=== PATIENT | female | born 1945 | race Caucasian/White ===

== ENCOUNTER 2021-10-01 09:48 | Inpatient (IN) | payer OTHER ==
[2021-09-30 10:44] LABS: INR 1.02 (0.9-1.15); Partial Thromboplastin Time 26.2 sec (23.6-33.0)
[~2021-10-01] VITALS: Ht 165.1 cm; Wt 73.1 kg
[2021-10-01] MEDS ORDERED: CLINDAMYCIN 900MG IV 50 ML IV ONE (11:14)
[2021-10-01] MEDS ORDERED: EPINEPHrine HCL 1 MG/1 ML AMP ONE (12:13)
[2021-10-01] MEDS ORDERED: TRANEXAMIC ACID 20 ML ONE (12:13)
[2021-10-01] MEDS ORDERED: VANCOMYCIN HCL 1000 MG VL ONE (12:14)
[2021-10-01] MEDS ORDERED: TETRACAINE 1% INJ 2 ML VIAL IJ ONE (12:27)
[2021-10-01] MEDS ORDERED: MORPHINE SULF PF 2 MG/2 ML SYRG ONE ×2 (12:32→15:01)
[2021-10-01] MEDS ORDERED: BUPIVACAINE 0.25% INJ 50ML VIAL ONE (15:02)
[2021-10-01] MEDS ORDERED: KETOROLAC TROMETH 30 MG/ML 1ML VIAL ONE (15:03)
[2021-10-01] MEDS ORDERED: ACETAMINOPHEN 325 MG TAB PO PRN (15:45)
[2021-10-01] MEDS ORDERED: HYDROmorphone HCL 2 MG/ML VL IV PRN (15:45)
[2021-10-01] MEDS ORDERED: oxyCODONE HCL 5MG TAB PO PRN ×2 (15:45)
[2021-10-01] MEDS ORDERED: fentaNYL CITRATE 100 MCG/2 ML VL IV ONE (15:53)
[2021-10-01] MEDS ORDERED: MIDAZOLAM HCL 2MG/2ML 2ml VIAL (1mg/ml) IV ONE (15:53)
[2021-10-01] MEDS ORDERED: ONDANSETRON HCL 4 MG/2 ML VIAL IV ONE (15:53)
[2021-10-01] MEDS ORDERED: PROPOFOL 10 MG/ML 20 ML IV ONE (15:53)
[2021-10-01] MEDS ORDERED: ONDANSETRON HCL 4 MG/2 ML VIAL IV PRN (16:00)
[2021-10-01] MEDS: HYDROmorphone HCL 2 MG/ML VL ONE ×2 (16:09→16:30)
[2021-10-01] MEDS: D5W/LACTATED RINGERS 1,000 ML IV SCH (17:52)
[2021-10-01] MEDS: ACETAMINOPHEN 325 MG TAB PO SCH ×2 (18:12→23:14)
[2021-10-01] MEDS: KETOROLAC TROMETH 30 MG/ML 1ML VIAL IV SCH ×2 (18:12→23:13)
[2021-10-01 18:13] VITALS: BP 145/62
[2021-10-01] MEDS: CLINDAMYCIN 600MG IV 50 ML IV SCH (19:36)
[2021-10-01] MEDS: PREGABALIN 25 MG CAP PO SCH (21:17)
[2021-10-01] MEDS: ceFAZolin 2 GM in D5W 5% 100 ML IV SCH (21:43)
[2021-10-01 22:00] VITALS: BP 129/63
[2021-10-01] MEDS ORDERED: CLINDAMYCIN 600MG IV 50 ML IV SCH (22:00)
[2021-10-02] MEDS: D5W/LACTATED RINGERS 1,000 ML IV SCH ×2 (00:51→12:21)
[2021-10-02] MEDS: CLINDAMYCIN 600MG IV 50 ML IV SCH (03:43)
[2021-10-02 05:00] VITALS: BP 101/54
[2021-10-02] MEDS: ceFAZolin 2 GM in D5W 5% 100 ML IV SCH (05:17)
[2021-10-02] MEDS: KETOROLAC TROMETH 30 MG/ML 1ML VIAL IV SCH ×2 (05:18→12:21)
[2021-10-02] MEDS: ACETAMINOPHEN 325 MG TAB PO SCH ×3 (05:18→17:55)
[2021-10-02 09:00] VITALS: BP 104/58
[2021-10-02] MEDS: PREGABALIN 25 MG CAP PO SCH (09:28)
[2021-10-02] MEDS ORDERED: ASPirin 81 mg TAB PO SCH (10:00)
[2021-10-02 12:39] VITALS: BP 104/58
[2021-10-02 12:55] VITALS: BP 115/61
[2021-10-02 13:21] LABS: Basophils # (auto) 0 10 ^3/uL (0-0.2); Basophils % (auto) 0.2 % (0.0-2.0); Eosinophils # (auto) 0 10 ^3/uL (0-0.8); Eosinophils % (auto) 0.4 % (0.0-7.0); Hematocrit 31.9 % (36.0-46.0); Hemoglobin 10.5 g/dL (12.2-16.2); Mean Corpuscular Hemoglobin 28.8 pg (28.0-32.0); Mean Corpuscular Volume 87.4 fL (80.0-100.0); Monocytes # (auto) 0.8 10 ^3/uL (0-1.3); Monocytes % (auto) 10.1 % (0.0-12.0); Neutrophils # (auto) 5.6 10 ^3/uL (1.6-8.6); Neutrophils % (auto) 75.3 % (37.0-80.0); Nucleated Red Blood Cells % 0.1 %; Red Blood Cells 3.65 10^6/uL (4.0-5.20); Red Cell Distribution Width 13.7 % (11.8-14.3); White Blood Cell 7.4 10^3/uL (4.4-10.8)
[2021-10-02 14:46] LABS: Potassium 3.9 mmol/L (3.5-5.1)
[2021-10-02 14:50] LABS: BUN/Creatinine Ratio 15.9
[2021-10-02 16:45] VITALS: BP 115/61
== END 2021-10-02 15:54 | disposition home health service (06) | DRG 470 ==
LOC: SUR 09:48 → TELE-CENTR 09:49
PROVIDERS: ADMIT Orthopaedic Surgery; ATTEND Orthopaedic Surgery
PROC: 0SRD069 Replacement of Left Knee Joint with Oxidized Zirconium on Polyethylene Synthetic Substitute, Cemented, Open Approach (ICD-10-PCS; principal; 2021-10-01 12:26)
DX: M17.12 Unilateral primary osteoarthritis, left knee (principal); Z80.52 Family history of malignant neoplasm of bladder; Z82.3 Family history of stroke; Z20.822 Contact with and (suspected) exposure to COVID-19; Z88.0 Allergy status to penicillin
CPT/HCPCS: 36415; 73562; 80048; 85025; 85610; 85730; 86850; 86900; 86901; G0378; J0171; J0690; J1885; J2250; J2405; J2704; J3490; J7060

== ENCOUNTER 2024-05-03 22:21 | Inpatient (IN) | payer OTHER ==
[~2024-05-03] VITALS: Ht 170.2 cm; Wt 84.6 kg
[2024-05-04] VITALS (9 sets, daily range): BP systolic 114–135; BP diastolic 42–70; PULSE 62–76; RESP 16–20; TEMP 98.2–99.2; O2SAT 93–98
[2024-05-04] MEDS ORDERED: DOCUSATE SOD 100 MG CAP PO PRN (04:45)
[2024-05-04] MEDS ORDERED: MORPHINE SULFATE INJ 2 MG/ml SYRG IV PRN (04:45)
[2024-05-04] MEDS ORDERED: ONDANSETRON HCL 4 MG/2 ML VIAL IV PRN (04:45)
[2024-05-04] MEDS: D5W/SOD CHL 0.45% 1,000 ML IV SCH (04:45)
[2024-05-04] MEDS ORDERED: NITROGLYCERIN 0.4 MG SL TAB SL PRN (04:45)
[2024-05-04] MEDS: MORPHINE SULFATE INJ 2 MG/ml SYRG IV PRN (05:57)
[2024-05-04] MEDS ORDERED: GABA-1308 PO (07:06)
[2024-05-04] MEDS ORDERED: BACL10TA PO (07:08)
[2024-05-04] MEDS ORDERED: IBUP-1454 PO (07:08)
[2024-05-04 08:33] LABS: Basophils # (auto) 0 10 ^3/uL (0-0.2); Basophils % (auto) 0.3 % (0.0-2.0); Eosinophils # (auto) 0.1 10 ^3/uL (0-0.8); Eosinophils % (auto) 1.4 % (0.0-7.0); Hematocrit 33.4 % (36.0-46.0); Lymphocytes # (auto) 1.4 10 ^3/uL (0.4-5.4); Mean Corpuscular Hgb Conc. 33.1 g/dL (32.0-36.0); Mean Corpuscular Volume 87.6 fL (80.0-100.0); Monocytes % (auto) 10.4 % (0.0-12.0); Neutrophils # (auto) 6.7 10 ^3/uL (1.6-8.6); Neutrophils % (auto) 72.9 % (37.0-80.0); Red Blood Cells 3.81 10^6/uL (4.0-5.20); Red Cell Distribution Width 15.7 % (11.8-14.3); White Blood Cell 9.1 10^3/uL (4.4-10.8)
[2024-05-04 08:48] LABS: Carbon Dioxide 27 mmol/L (20-30)
[2024-05-04 08:49] LABS: Calcium 9.1 mg/dL (8.5-10.1)
[2024-05-04 08:50] LABS: Chloride 107 mmol/L (98-107); Potassium 3.8 mmol/L (3.5-5.1); Sodium 137 mmol/L (136-145)
[2024-05-04 08:54] LABS: BUN/Creatinine Ratio 15.5 (10.0-20.0); Blood Urea Nitrogen 9 mg/dL (9-23); Glucose 103 mg/dL (74-106)
[2024-05-04] MEDS: ENOXAPARIN SOD 40 MG/0.4 ML SYRINGE SC SCH (10:00)
[2024-05-04 11:20] LABS: INR 1.04 (0.9-1.15)
[2024-05-04 11:28] LABS: Anion Gap 3 (5-15)
[2024-05-04] MEDS ORDERED: PROPOFOL 10 MG/ML 20 ML IV ONE (12:25)
[2024-05-04] MEDS ORDERED: fentaNYL CITRATE 100 MCG/2 ML VL ONE (13:02)
[2024-05-04] MEDS ORDERED: MORPHINE SULF PF 5 MG/10 ML VIAL ONE (13:37)
[2024-05-04] MEDS ORDERED: ePHEDrine SULFATE 50 MG/ML AMP ONE (13:38)
[2024-05-04] MEDS ORDERED: ONDANSETRON HCL 4 MG/2 ML VIAL ONE (13:41)
[2024-05-04] MEDS ORDERED: DexAMETHasone SOD PHOS 10MG/1ML VIAL INJ ONE (13:41)
[2024-05-04] MEDS ORDERED: MEPERIDINE HCL (50 MG/ML) 1 ML VIAL ONE (13:44)
[2024-05-04] MEDS ORDERED: MEPERIDINE HCL (25 MG/ML) 1ML VIAL IV PRN (16:00)
[2024-05-04] MEDS ORDERED: HYDROmorphone HCL 2 MG/ML VL/or syr IV PRN (16:00)
[2024-05-04] MEDS: EPINEPHrine HCL 1 MG/1 ML AMP ONE (16:07)
[2024-05-04] MEDS: KETOROLAC TROMETH 30 MG/ML 1ML VIAL ONE (16:09)
[2024-05-04] MEDS: TRANEXAMIC ACID 20 ML ONE (17:04)
[2024-05-04] MEDS: VANCOMYCIN HCL 1000 MG VL ONE (17:04)
[2024-05-04] MEDS: ROPIVACAINE 0.5% (5MG/ML) 20ML AMPULE IJ ONE ×2 (17:04→17:05)
[2024-05-04] MEDS: BUPIVACAINE 0.25% INJ 50ML VIAL ONE (17:05)
[2024-05-04] MEDS: ceFAZolin 2 GM/D5W50ml 50 ML IV ONE (17:05)
[2024-05-04] MEDS: BUPIVACAINE 0.5% P/F INJ 10 ML VIAL ONE (17:05)
[2024-05-04] MEDS: LACTATED RINGER'S 1,000 ML IV SCH (17:08)
[2024-05-04] MEDS: ONDANSETRON HCL 4 MG/2 ML VIAL IV ONE (17:08)
[2024-05-04] MEDS: ceFAZolin 1GM/50ML 50 ML IV SCH (22:14)
[2024-05-05] VITALS (9 sets, daily range): BP systolic 107–125; BP diastolic 43–58; PULSE 64–90; RESP 18–21; TEMP 98–100.5; O2SAT 93–96
[2024-05-05 06:41] LABS: Anion Gap 7 (5-15); Carbon Dioxide 25 mmol/L (20-30); Chloride 104 mmol/L (98-107); Potassium 4.1 mmol/L (3.5-5.1); Sodium 136 mmol/L (136-145)
[2024-05-05 06:43] LABS: Calcium 8.7 mg/dL (8.7-10.4)
[2024-05-05 06:47] LABS: BUN/Creatinine Ratio 21.4 (10.0-20.0); Blood Urea Nitrogen 12 mg/dL (9-23); Glucose 127 mg/dL (74-106)
[2024-05-05 07:55] LABS: Basophils # (auto) 0 10 ^3/uL (0-0.2); Basophils % (auto) 0.1 % (0.0-2.0); Eosinophils # (auto) 0 10 ^3/uL (0-0.8); Eosinophils % (auto) 0.3 % (0.0-7.0); Hematocrit 25.1 % (36.0-46.0); Hemoglobin 8.6 g/dL (12.2-16.2); Lymphocytes # (auto) 1.1 10 ^3/uL (0.4-5.4); Lymphocytes % (auto) 11.3 % (10.0-50.0); Mean Corpuscular Hemoglobin 29.6 pg (28.0-32.0); Mean Corpuscular Hgb Conc. 34.2 g/dL (32.0-36.0); Mean Corpuscular Volume 86.4 fL (80.0-100.0); Monocytes # (auto) 1.1 10 ^3/uL (0-1.3); Monocytes % (auto) 11.5 % (0.0-12.0); Neutrophils # (auto) 7.6 10 ^3/uL (1.6-8.6); Neutrophils % (auto) 76.8 % (37.0-80.0); Red Blood Cells 2.91 10^6/uL (4.0-5.20); Red Cell Distribution Width 15.3 % (11.8-14.3); White Blood Cell 9.9 10^3/uL (4.4-10.8)
[2024-05-05] MEDS: ENOXAPARIN SOD 40 MG/0.4 ML SYRINGE SC SCH (10:56)
[2024-05-06] VITALS (8 sets, daily range): BP systolic 108–124; BP diastolic 43–53; PULSE 68–87; RESP 12–18; TEMP 98.3–99.6; O2SAT 95–100
[2024-05-06 07:00] LABS: Basophils # (auto) 0 10 ^3/uL (0-0.2); Basophils % (auto) 0.4 % (0.0-2.0); Eosinophils # (auto) 0.3 10 ^3/uL (0-0.8); Eosinophils % (auto) 3.6 % (0.0-7.0); Hematocrit 25.9 % (36.0-46.0); Hemoglobin 8.8 g/dL (12.2-16.2); Lymphocytes # (auto) 1.1 10 ^3/uL (0.4-5.4); Lymphocytes % (auto) 15.4 % (10.0-50.0); Mean Corpuscular Hemoglobin 29.2 pg (28.0-32.0); Mean Corpuscular Hgb Conc. 34.1 g/dL (32.0-36.0); Mean Corpuscular Volume 85.7 fL (80.0-100.0); Monocytes # (auto) 0.9 10 ^3/uL (0-1.3); Monocytes % (auto) 11.5 % (0.0-12.0); Neutrophils # (auto) 5.1 10 ^3/uL (1.6-8.6); Neutrophils % (auto) 69.1 % (37.0-80.0); Red Blood Cells 3.02 10^6/uL (4.0-5.20); Red Cell Distribution Width 15.3 % (11.8-14.3); White Blood Cell 7.4 10^3/uL (4.4-10.8)
[2024-05-06 07:10] LABS: Calcium 8.7 mg/dL (8.5-10.1); Chloride 105 mmol/L (98-107); Potassium 3.7 mmol/L (3.5-5.1); Sodium 137 mmol/L (136-145)
[2024-05-06 07:11] LABS: Anion Gap 2 (5-15); Carbon Dioxide 30 mmol/L (20-30)
[2024-05-06 07:18] LABS: BUN/Creatinine Ratio 12.5 (10.0-20.0); Blood Urea Nitrogen 6 mg/dL (9-23); Glucose 110 mg/dL (74-106)
[2024-05-06] MEDS: BACLOFEN 10 MG TAB PO ONE (14:42)
[2024-05-06] MEDS: GABAPENTIN 300 MG CAP PO ONE (14:43)
[2024-05-06] MEDS: LIDOCAINE 5% TOPICAL PATCH TOP SCH (14:43)
[2024-05-06] MEDS: BACLOFEN 10 MG TAB PO SCH (21:44)
[2024-05-06] MEDS: GABAPENTIN 300 MG CAP PO SCH (22:11)
[2024-05-06] MEDS: ACETAMINOPHEN 325 MG TAB PO PRN (22:12)
[2024-05-07] VITALS (8 sets, daily range): BP systolic 105–131; BP diastolic 45–60; PULSE 60–78; RESP 15–20; TEMP 97.4–99.1; O2SAT 93–99
[2024-05-07 06:30] LABS: Basophils # (auto) 0 10 ^3/uL (0-0.2); Basophils % (auto) 0.3 % (0.0-2.0); Eosinophils # (auto) 0.4 10 ^3/uL (0-0.8); Eosinophils % (auto) 6.1 % (0.0-7.0); Hematocrit 28.6 % (36.0-46.0); Hemoglobin 9.4 g/dL (12.2-16.2); Lymphocytes # (auto) 1.4 10 ^3/uL (0.4-5.4); Lymphocytes % (auto) 19.2 % (10.0-50.0); Mean Corpuscular Hemoglobin 28.7 pg (28.0-32.0); Mean Corpuscular Hgb Conc. 32.9 g/dL (32.0-36.0); Mean Corpuscular Volume 87.2 fL (80.0-100.0); Monocytes # (auto) 0.8 10 ^3/uL (0-1.3); Monocytes % (auto) 11.7 % (0.0-12.0); Neutrophils # (auto) 4.4 10 ^3/uL (1.6-8.6); Neutrophils % (auto) 62.7 % (37.0-80.0); Nucleated Red Blood Cells % 0.1 %; Red Blood Cells 3.28 10^6/uL (4.0-5.20); Red Cell Distribution Width 15.6 % (11.8-14.3); White Blood Cell 7.1 10^3/uL (4.4-10.8)
[2024-05-07 07:30] LABS: Anion Gap 4 (5-15); Carbon Dioxide 28 mmol/L (20-30); Chloride 106 mmol/L (98-107); Potassium 3.9 mmol/L (3.5-5.1); Sodium 138 mmol/L (136-145)
[2024-05-07 07:37] LABS: BUN/Creatinine Ratio 9.8 (10.0-20.0); Blood Urea Nitrogen 6 mg/dL (9-23); Glucose 110 mg/dL (74-106); Magnesium 1.7 mg/dL (1.6-2.6)
[2024-05-07] MEDS: HYDROcodone-ACET 5/325MG TAB PO PRN (09:37)
[2024-05-08 05:00] VITALS: BP 118/44; PULSE 60; RESP 18; TEMP 97.7; O2SAT 98
[2024-05-08 07:19] LABS: Basophils # (auto) 0 10 ^3/uL (0-0.2); Basophils % (auto) 0.6 % (0.0-2.0); Eosinophils # (auto) 0.4 10 ^3/uL (0-0.8); Eosinophils % (auto) 7.8 % (0.0-7.0); Hematocrit 25.5 % (36.0-46.0); Hemoglobin 8.7 g/dL (12.2-16.2); Lymphocytes # (auto) 1.5 10 ^3/uL (0.4-5.4); Lymphocytes % (auto) 27.1 % (10.0-50.0); Mean Corpuscular Hemoglobin 29.4 pg (28.0-32.0); Mean Corpuscular Hgb Conc. 34.1 g/dL (32.0-36.0); Monocytes # (auto) 0.7 10 ^3/uL (0-1.3); Monocytes % (auto) 12.4 % (0.0-12.0); Neutrophils % (auto) 52.1 % (37.0-80.0); Nucleated Red Blood Cells % 0.1 %; Red Blood Cells 2.97 10^6/uL (4.0-5.20); Red Cell Distribution Width 15.3 % (11.8-14.3); White Blood Cell 5.7 10^3/uL (4.4-10.8)
[2024-05-08 07:30] VITALS: PULSE 71; PULSE 75; RESP 12; O2SAT 97
[2024-05-08 07:35] LABS: Anion Gap 7 (5-15); Carbon Dioxide 28 mmol/L (20-30); Chloride 105 mmol/L (98-107); Potassium 4.1 mmol/L (3.5-5.1); Sodium 140 mmol/L (136-145)
[2024-05-08 07:41] LABS: Glucose 93 mg/dL (74-106)
[2024-05-08 07:42] LABS: BUN/Creatinine Ratio 13.8 (10.0-20.0); Blood Urea Nitrogen 8 mg/dL (9-23)
[2024-05-08 09:00] VITALS: BP 114/59; PULSE 66; RESP 16; TEMP 97.3; O2SAT 100
[2024-05-08 12:49] VITALS: BP 110/68; PULSE 80; RESP 17; TEMP 97.8; O2SAT 97
[2024-05-08 13:00] VITALS: BP 107/49; PULSE 66; RESP 17; TEMP 98.2; O2SAT 96
[2024-05-08] MEDS: LIDOCAINE 5% TOPICAL PATCH TOP ONE (13:45)
== END 2024-05-08 16:55 | DRG 522 ==
LOC: CENTRAL 05-04 04:22 → TELE-CENTR 05-04 18:35
PROVIDERS: ADMIT Internal Medicine; ATTEND Internal Medicine
PROC: 0SRR0J9 Replacement of Right Hip Joint, Femoral Surface with Synthetic Substitute, Cemented, Open Approach (ICD-10-PCS; principal; 2024-05-04 13:09)
DX: S72.001A Fracture of unspecified part of neck of right femur, initial encounter for closed fracture (principal); D64.89 Other specified anemias; D72.829 Elevated white blood cell count, unspecified; G62.9 Polyneuropathy, unspecified; W18.30XA Fall on same level, unspecified, initial encounter; Z96.653 Presence of artificial knee joint, bilateral; Z88.0 Allergy status to penicillin; Z88.2 Allergy status to sulfonamides; Z80.52 Family history of malignant neoplasm of bladder; Z86.19 Personal history of other infectious and parasitic diseases; Z82.3 Family history of stroke; Z90.710 Acquired absence of both cervix and uterus; Z87.891 Personal history of nicotine dependence; Y93.89 Activity, other specified; Y92.89 Other specified places as the place of occurrence of the external cause; Y99.8 Other external cause status
CPT/HCPCS: 36415; 72170; 73502; 73700; 80048; 83735; 85025; 85610; 86850; 86900; 86901; 93306; 97110; 97116; 97163; 97530; G0378; J0171; J1100; J1885; J2405; J2704; J3490; J7042

== ENCOUNTER → 2024-10-02 | Outpatient (CLI) | payer OTHER, MEDICAID ==
[~2024-10-02] MED LIST: BACL10TA PO; GABA-1308 PO
--- NOTE | 2024-10-03 09:08 | DVH ---
CLINICAL INFORMATION: 78 years old, Female; [employer]. TECHNIQUE: Following the intravenous administration of 22.4 mCi technetium 99m-MDP, 3-phase bone sca n was performed. Immediate flow images and blood pool images of both knees were obtained in the anter ior and posterior projections. Delayed images were obtained in the anterior, posterior, and right and left lateral positions. COMPARISON: Left knee radiographs dated 10/01/2021. CT of the right femur dated 05/04/2024. FINDINGS: There is normal radiopharmaceutical uptake without evidence of focal osseous lesion. No abn ormal radiopharmaceutical uptake adjacent to either knee prosthesis on the immediate flow or blood po ol images. Delayed images demonstrate expected photopenic defects associated with the bilateral knee prostheses. Areas of mild nonspecific increased uptake adjacent to the femoral and tibial components of the prostheses. IMPRESSION: 1. No abnormal radiopharmaceutical uptake on the immediate flow and blood pool images to infection as sociated with either prosthesis. 2. Nonspecific mildly increased uptake adjacent to the femoral and tibial components of both prosthes es.
== END | disposition home or self-care (01) ==
LOC: XYW 08:20
PROVIDERS: ATTEND Orthopaedic Surgery Adult Reconstructive Orthopaedic Surgery
DX: T84.84XA Pain due to internal orthopedic prosthetic devices, implants and grafts, initial encounter (principal); Y82.8 Other medical devices associated with adverse incidents
CPT/HCPCS: 78315; A9503